=== PATIENT | female | born 1995 | race Caucasian/White ===

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

== ENCOUNTER 2017-02-03 21:46 | Emergency (ER) | payer SELFPAY ==
[~2017-02-03] VITALS: Ht 152.4 cm; Wt 56.5 kg
[2017-02-03 21:54] VITALS: BP 115/58; PULSE 83; RESP 16; TEMP 98.5; O2SAT 100
[2017-02-03 22:05] VITALS: BP 110/59; PULSE 74; RESP 20; O2SAT 100
[2017-02-03] MEDS ORDERED: TYLE325T PO (22:09)
[2017-02-03] MEDS ORDERED: IBUP400T20 PO (22:09)
--- NOTE | 2017-02-03 22:13 | PD ---
HPI Chief Complaint: Headache Time Seen by Provider: 22:00 Travel History International Travel<30 days: No Contact w/Intl Traveler<30days: No Traveled to known affect area: No History of Present Illness HPI 22-year-old female complains of headache. Patient states that headache started yesterday and persistent since then. Patient states the panic throbbing headache mostly in the left side the head. Patient stated she has photophobia dizziness and nausea with the headache. Patient denies any recent head injury. Patient denies any neck pain. Patient denies any chest pain or shortness of breath. Patient denies abdominal pain. Patient denies any focal weakness or numbness of extremity. Patient states that she has history recurrent headache since she was young. Patient has family history of migraine headache. Patient has not seen any neurologist for headache problem. Patient has not had any CT scan of the brain for headache. Patient's on her menstruation period now. Patient denies any chance of being . On a scale of 1-10 the headache is a 10. Patient states that she usually takes ibuprofen or Tylenol for headache. PFSH Past Medical History Hx Anticoagulant Therapy: No Asthma: No Autoimmune Disease: No Blood Disorders: No Anxiety: No Depression: No Heart Rhythm Problems: No Cardiovascular Problems: No Chemotherapy: No Chest Pain: No Cerebrovascular Accident: No Cystic Fibrosis: No Diabetes: No Diminished Hearing: No Genitourinary: No Headaches: No Hypertension: No Musculoskeletal: Yes (FX RT FEMUR) Neurologic: No Psychiatric: No Respiratory: No Immunizations Current: Yes Migraines: No Seizures: No Sickle Cell Disease: No Sleep Apnea: No ?: Not LMP: NOW : 0 Past Surgical History Abdominal Surgery: No Appendectomy: No Cardiac Surgery: No Cholecystectomy: No Ear Surgery: No Endocrine Surgery: No Eye Surgery: No Genitourinary Surgery: No Gynecologic Surgery: No Hysterectomy: No Neurologic Surgery: No Oral Surgery: No Thoracic Surgery: No Tonsillectomy: Yes Social History Alcohol Use: Yes (occasionally) Tobacco Use: Yes (1/2 ppd) Substance Use: No Allergies-Medications (Allergen,Severity, Reaction): Coded Allergies: No Known Allergies (Verified , 02/03/17) Reported Meds & Prescriptions Reported Meds & Active Scripts Active Reported Tylenol (Acetaminophen) 325 Mg Tab 650 Mg PO Q4H PRN Ibuprofen 400 Mg Tab 400 Mg PO Q6H PRN Review of Systems General / Constitutional: No: Fever Eyes: Positive: Photophobia, No: Visual changes HENT: Positive: Headaches Cardiovascular: No: Chest Pain or Discomfort Respiratory: No: Shortness of Breath Gastrointestinal: Positive: Nausea, No: Abdominal Pain Genitourinary: No: Dysuria Musculoskeletal: No: Pain Skin: No Rash Neurologic: No: Weakness Psychiatric: No: Depression Endocrine: No: Polydipsia Hematologic/Lymphatic: No: Easy Bruising Physical Exam Narrative GENERAL: Well-nourished, well-developed patient. SKIN: Focused skin assessment warm/dry. HEAD: Normocephalic. EYES: No scleral icterus. No injection or drainage. Pupils 4 mm equal reactive. NECK: Supple, trachea midline. No JVD or lymphadenopathy. No meningismus CARDIOVASCULAR: Regular rate and rhythm without murmurs, gallops, or rubs. RESPIRATORY: Breath sounds equal bilaterally. No accessory muscle use. GASTROINTESTINAL: Abdomen soft, non-tender, nondistended. MUSCULOSKELETAL: No cyanosis, or edema. BACK: Nontender without obvious deformity. No CVA tenderness. Neurologic exam: Patient is awake and alert oriented 3. No obvious focal neurological deficit. Data Data Last Documented VS Vital Signs Date Time Temp Pulse Resp B/P Pulse Ox O2 Delivery O2 Flow Rate FiO2 02/03/17 21:54 98.5 83 16 115/[address] Brain W/O Iv Contrast(Rout) (02/03/17 22:06) Sodium Chlorid 0.9% 500 Ml Inj (Ns 500 M (02/03/17 22:15) Prochlorperazine Inj (Compazine Inj) (02/03/17 22:15) Diphenhydramine Inj (Benadryl Inj) (02/03/17 22:15) Ketorolac Inj (Toradol Inj) (02/03/17 22:15) MDM Medical Decision Making Medical Screen Exam Complete: Yes Emergency Medical Condition: Yes Interpretation(s) 22:[address] scan of brain negative acute pathology. Differential Diagnosis Differential diagnoses including migraine headache, tension headache, cluster headache, encephalitis. Narrative Course 22-year-old female with headache, photophobia and nausea. Family history of migraine. Normal saline solution 500 cc IV bolus. Compazine 10 mg IV. Benadryl 50 mg IV. Toradol 30 mg IV. Patient had a small amount of Compazine mixed in normal saline solution and started having muscle twitching reaction. Compazine IV drip was stopped. Muscle twitching reaction stop. Patient was discharged home. Diagnosis Primary Impression: Cephalgia Qualified Code: R51 - Chronic nonintractable headache, unspecified headache type Patient Instructions: General Instructions Additional Instructions: Fioricet as needed for headache. Zofran as needed for nausea. Follow with neurologist and personal physician. Return if worse. Med/Other Pt SpecificInfo: Prescription(s) given Scripts Ondansetron Odt (Zofran Odt)4 Mg Tab4 Mg SL Q6HR PRN (Nausea/Vomiting) #12 TAB Ref 0 Prov:Marcelino Alves MD 02/03/17 Owoddtdhcu-Unklqcusghqph-Trnaaamv (Fioricet)50-300-40 Mg Cap1-2 Cap PO Q6H PRN ( HEADACHE) #30 CAP Ref 0 Prov:Marcelino Alves MD 02/03/17 Disposition: 01 DISCHARGE HOME Condition: Stable Marcelino Alves MD February 03, 2017 22:13
[2017-02-03] MEDS ORDERED: KETOROLAC TROMETHAMINE 30 MG/ML (IVP) VIAL IV PUSH ONE (22:15)
[2017-02-03] MEDS ORDERED: diphenhydrAMINE HCL 50 MG/ML VIAL IV PUSH ONE (22:15)
[2017-02-03] MEDS ORDERED: PROCHLORPERAZINE INJ 10 MG/2 ML VIAL IV PUSH ONE (22:15)
[2017-02-03] MEDS ORDERED: SODIUM CHLORID 0.9% 500 ML INJ 500 ML IV ONE (22:15)
--- NOTE | 2017-02-03 22:42 | RADHPO ---
EXAM DATE/TIME: 02/03/2017 22:19 [facility] COMPARISON: No previous studies available for comparison. INDICATIONS : Cephalgia. RADIATION DOSE: 64.38 CTDIvol (mGy) MEDICAL HISTORY : None SURGICAL HISTORY : None. ENCOUNTER: Initial ACUITY: 2 days PAIN SCALE: 8/10 LOCATION: cranial TECHNIQUE: Multiple contiguous axial images were obtained of the head. Using automated exposure control and adj ustment of the mA and/or kV according to patient size, radiation dose was kept as low as reasonably a chievable to obtain optimal diagnostic quality images. FINDINGS: CEREBRUM: The ventricles are normal for age. No evidence of midline shift, mass lesion, hemorrhage or acute in farction. No extra-axial fluid collections are seen. POSTERIOR FOSSA: The cerebellum and brainstem are intact. The 4th ventricle is midline. The cerebellopontine angle i s unremarkable. EXTRACRANIAL: The visualized portion of the orbits is intact. SKULL: The calvaria is intact. No evidence of skull fracture. CONCLUSION: 1. No evidence of acute intracranial pathology. No masses are identified. Marv Lewis MD on February 03, 2017 at 22:40 Board Certified Radiologist. This report was verified electronically.
[2017-02-03] MEDS ORDERED: ZOFR4TAB3 SL (22:56)
[2017-02-03] MEDS ORDERED: BUTA1CAP PO (22:56)
[2017-02-03 23:25] VITALS: BP 118/68
== END 2017-02-03 23:47 | disposition home or self-care (01) ==
LOC: PHED 21:46
DX: R51 Headache (principal); F17.210 Nicotine dependence, cigarettes, uncomplicated
CPT/HCPCS: 70450; 96361; 96374; 96375; 99284; J0780; J1200; J1885; J7040

== ENCOUNTER 2017-09-08 19:39 | Emergency (ER) | payer SELFPAY ==
[~2017-09-08 19:39] MED LIST changes: +BUTA1CAP PO; +IBUP1TAB5 PO; -NAPR500T PO; -ROBA750T PO; +TYLE325T PO; +ZOFR4TAB3 SL
[2017-09-08 19:42] VITALS: BP 134/68; PULSE 106; RESP 16; TEMP 99.4; O2SAT 100
--- NOTE | 2017-09-08 20:11 | PD ---
HPI Chief Complaint: GI Complaint Time Seen by Provider: 20:11 Travel History International Travel<30 days: No Contact w/Intl Traveler<30days: No Traveled to known affect area: No History of Present Illness HPI Patient is a 22-year-old female presenting to the emergency evaluation of vomiting. She states she woke up at 3 AM feeling nauseated and began to vomit for 1 hour. She reports falling back asleep until 12 PM, waking up and having that same cycle of vomiting for about an hour again, this happened again at 4 PM and has not happened since. Patient denies any abdominal pain, fever, chills , headache. Feels tired. She denies any contaminated food or sick contacts. PFSH Past Medical History Hx Anticoagulant Therapy: No Asthma: No Autoimmune Disease: No Blood Disorders: No Anxiety: No Depression: No Heart Rhythm Problems: No Cardiovascular Problems: No Chemotherapy: No Chest Pain: No Cerebrovascular Accident: No Cystic Fibrosis: No Diabetes: No Diminished Hearing: No Genitourinary: No Headaches: No Hypertension: No Musculoskeletal: Yes (FX RT FEMUR) Neurologic: Yes (HX HEADACHE) Psychiatric: No Respiratory: No Immunizations Current: Yes Migraines: No Seizures: No Sickle Cell Disease: No Sleep Apnea: No ?: Not LMP: 08/20/17 : 0 Past Surgical History Abdominal Surgery: No Appendectomy: No Cardiac Surgery: No Cholecystectomy: No Ear Surgery: No Endocrine Surgery: No Eye Surgery: No Genitourinary Surgery: No Gynecologic Surgery: No Hysterectomy: No Neurologic Surgery: No Oral Surgery: No Thoracic Surgery: No Tonsillectomy: Yes Social History Alcohol Use: Yes (SOCIALLY) Tobacco Use: Yes Substance Use: No Allergies-Medications (Allergen,Severity, Reaction): Coded Allergies: prochlorperazine (Unverified Adverse Reaction, Severe, TREMORS, 05/04/17) Reported Meds & Prescriptions Reported Meds & Active Scripts Active Zofran Odt (Ondansetron Odt) 4 Mg Tab 4 Mg SL Q6HR PRN Fioricet (Oylgyizojw-Zaetuiaitjqyi-Izozhwuv) 50-300-40 Mg Cap 1-2 Cap PO Q6H PRN Reported Tylenol (Acetaminophen) 325 Mg Tab 650 Mg PO Q4H PRN Ibuprofen 400 Mg Tab 400 Mg PO Q6H PRN Review of Systems Except as stated in HPI: all other systems reviewed are Neg General / Constitutional: No: Fever, Chills HENT: No: Headaches Cardiovascular: No: Chest Pain or Discomfort Respiratory: No: Shortness of Breath Gastrointestinal: Positive: Nausea, Vomiting, No: Abdominal Pain Genitourinary: No: Dysuria Physical Exam Narrative GENERAL: Well-developed, well-nourished, alert female. Does not appear to be in any acute distress. SKIN: Warm and dry. HEAD: Normocephalic. EYES: No scleral icterus. No injection or drainage. CARDIOVASCULAR: Regular rate RESPIRATORY: No increased work of breathing MUSCULOSKELETAL: No cyanosis, or edema. Data Data Last Documented VS Vital Signs Date Time Temp Pulse Resp B/P (MAP) Pulse Ox O2 Delivery O2 Flow Rate FiO2 09/08/17 19:42 99.4 106 16 134/68 (90) 100 Room Air [facility] Medical Decision Making Medical Screen Exam Complete: Yes Emergency Medical Condition: Yes Interpretation(s) Vital Signs Date Time Temp Pulse Resp B/P (MAP) Pulse Ox O2 Delivery O2 Flow Rate FiO2 09/08/17 19:42 99.4 106 16 134/68 (90) 100 Room Air Differential Diagnosis Gastritis versus gastroenteritis versus cholecystitis versus obstruction versus pancreatitis versus other Narrative Course Patient's 22-year-old female presenting to emergency for evaluation of nausea vomiting. Patient is mildly tachycardic on arrival, she is in no acute distress. She is waiting on bed placement. Patient decided to leave the emergency department, she stated that she didn't want to wait anymore. Patient was reassured that she would be placed in a bed within the next few minutes however she stated that she wanted to go home and rest. AMA: The risks of leaving against medical advice without further evaluation treatment were discussed with the patient. These risks include cardiac dysfunction, cardiac dysrhythmia, possible heart attack, possible stroke or . The patient indicated understanding of these risks and appeared to have the capacity to make this decision. Diagnosis Primary Impression: Left against medical advice Evelyn Zhu Sep 08, 2017 20:11
== END 2017-09-08 20:11 | disposition left against medical advice (07) ==
LOC: NED 19:39
DX: R11.2 Nausea with vomiting, unspecified (principal); R00.0 Tachycardia, unspecified; Z79.899 Other long term (current) drug therapy; Z72.0 Tobacco use
CPT/HCPCS: 99281

== ENCOUNTER 2017-09-09 14:46 | Emergency (ER) | payer SELFPAY ==
[~2017-09-09] VITALS: Ht 152.4 cm; Wt 56.0 kg
[2017-09-09 14:50] VITALS: BP 126/72; PULSE 94; RESP 17; TEMP 100.3; O2SAT 98
--- NOTE | 2017-09-09 15:22 | PD ---
HPI Chief Complaint: GI Complaint Time Seen by Provider: 15:08 Travel History International Travel<30 days: No Contact w/Intl Traveler<30days: No Traveled to known affect area: No History of Present Illness HPI The patient was seen and examined in the presence of the nurse. This patient coughed up some bloody phlegm today. She's had some congestion and cough. She also had vomiting. No diarrhea. Has a low-grade temperature here. Not having abdominal pain. Symptoms severity is mild to moderate PFSH Past Medical History Hx Anticoagulant Therapy: No Asthma: No Autoimmune Disease: No Blood Disorders: No Anxiety: No Depression: No Heart Rhythm Problems: No Cardiovascular Problems: No Chemotherapy: No Chest Pain: No Cerebrovascular Accident: No Cystic Fibrosis: No Diabetes: No Diminished Hearing: No Genitourinary: No Headaches: No Hypertension: No Musculoskeletal: Yes (FX RT FEMUR) Neurologic: Yes (HX HEADACHE) Psychiatric: No Respiratory: No Immunizations Current: Yes Migraines: No Seizures: No Sickle Cell Disease: No Sleep Apnea: No Influenza Vaccination: Yes ?: Not LMP: 08/20/17 : 0 Past Surgical History Abdominal Surgery: No Appendectomy: No Cardiac Surgery: No Cholecystectomy: No Ear Surgery: No Endocrine Surgery: No Eye Surgery: No Genitourinary Surgery: No Gynecologic Surgery: No Hysterectomy: No Neurologic Surgery: No Oral Surgery: No Thoracic Surgery: No Tonsillectomy: Yes Social History Alcohol Use: Yes (SOCIALLY) Tobacco Use: Yes Substance Use: No Allergies-Medications (Allergen,Severity, Reaction): Coded Allergies: prochlorperazine (Verified Adverse Reaction, Severe, TREMORS, 09/09/17) Reported Meds & Prescriptions Reported Meds & Active Scripts Active No Active Prescriptions or Reported Medications Review of Systems HENT: No: Headaches Cardiovascular: No: Chest Pain or Discomfort Respiratory: Positive: Cough Gastrointestinal: Positive: Nausea, Vomiting Physical Exam Narrative GENERAL: Well-nourished, well-developed patient in no apparent distress. SKIN: Focused skin assessment reveals no rash and nodules. Skin is Warm and dry. HEAD: Atraumatic. Normocephalic. EYES: Pupils equal and round. No scleral icterus. No injection or drainage. ENT: No nasal bleeding or discharge. Mucous membranes pink and moist. NECK: Trachea midline. No JVD. CARDIOVASCULAR: Regular rate and rhythm. No murmur appreciated. RESPIRATORY: No accessory muscle use. Clear to auscultation. Breath sounds equal bilaterally. GASTROINTESTINAL: Abdomen soft, non-tender, nondistended. Hepatic and splenic margins not palpable. MUSCULOSKELETAL: No obvious deformities. No clubbing. No cyanosis. No edema. NEUROLOGICAL: Awake and alert. No obvious cranial nerve deficits. Motor grossly within normal limits. Normal speech. PSYCHIATRIC: Appropriate mood and affect; insight and judgment normal. Data Data Last Documented VS Vital Signs Date Time Temp Pulse Resp B/P (MAP) Pulse Ox O2 Delivery O2 Flow Rate FiO2 09/09/17 16:22 99.5 73 18 95/56 (69) 99 Room Air Orders Orders Chest, Single Ap (09/09/17 ) Ed Urine Pregnancytest Poc (09/09/17 15:17) Ondansetron Odt (Zofran Odt) (09/09/17 15:30) [facility] Medical Decision Making Medical Screen Exam Complete: Yes Emergency Medical Condition: Yes Medical Record Reviewed: Yes Differential Diagnosis Bronchitis, pneumonia, ulcer disease Narrative Course I have reviewed the patient's electronic medical record. Challenging to ascertain whether patient coughed up blood or vomited up blood. Seems like she coughed it up. But also had a episode of emesis earlier today I reviewed her chest x-ray which is normal Urine is negative Gave her dose of Zofran Patient is no tachycardia or hypotension. Looks clinically well. Diagnosis Primary Impression: Acute viral bronchitis Additional Instructions: The patient was advised to follow up with their physician and return if they worsen. Med/Other Pt SpecificInfo: Other Scripts No Active Prescriptions or Reported Meds Disposition: 01 DISCHARGE HOME Condition: Stable Jeevan Badillo MD Sep 09, 2017 15:22
[2017-09-09] MEDS ORDERED: ONDANSETRON ODT 4 MG TAB PO ONE (15:30)
--- NOTE | 2017-09-09 15:57 | RADRPT ---
EXAM DATE/TIME: 09/09/2017 15:39 [place] COMPARISON: No previous studies available for comparison. INDICATIONS : Chest pain and vomiting blood for two days. MEDICAL HISTORY : None. SURGICAL HISTORY : None. ENCOUNTER: Initial ACUITY: 2 days PAIN SCORE: 2/10 LOCATION: Bilateral chest FINDINGS: A single view of the chest demonstrates the lungs to be symmetrically aerated without evidence of mas s, infiltrate or effusion. The cardiomediastinal contours are unremarkable. Osseous structures are intact. CONCLUSION: Normal examination. Ke Church MD on September 09, 2017 at 15:55 Board Certified Radiologist. This report was verified electronically.
[2017-09-09 16:22] VITALS: BP 95/56; PULSE 73; RESP 18; TEMP 99.5; O2SAT 99
== END 2017-09-09 16:46 | disposition home or self-care (01) ==
LOC: PHED 14:46
DX: J20.8 Acute bronchitis due to other specified organisms (principal)
CPT/HCPCS: 71010; 84703; 99283